=== PATIENT | female | born 1935 | race Hispanic/Latino ===

== ENCOUNTER 2018-10-26 11:27 | Outpatient (CLI) | payer MEDICARE ==
--- NOTE | 2018-10-26 13:30 | XRay Report ---
XRAY RIGHT HUMERUS TWO VIEWS: 10/26/18 11:38:00 CLINICAL: Right arm pain. FINDINGS: No fracture or dislocation. Normal alignment at the shoulder and elbow. Mild bony humeral joint osteoarthritis with a small inferior humeral osteophyte. Moderate acromioclavicular joint arthritis. Normal soft tissues. IMPRESSION: Shoulder arthritis and otherwise negative.
--- NOTE | 2018-10-26 13:52 | Cat Scan Report ---
PROCEDURE: CT HEAD/BRAIN WO CON TECHNIQUE: A noncontrast CT of the head was performed. 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 There is no acute intracranial hemorrhage. There is no brain edema, mass effect or midline shift. Ventricular size is appropriate for brain volume. There is no abnormal extra-axial fluid collections. There is no skull fracture seen. The visualized paranasal sinuses are clear. IMPRESSION: There is no acute intracranial abnormality seen. This document is electronically signed by Judith Almeida MD., October 26 2018 01:50:22 PM ET
== END 2018-10-26 11:28 | disposition home or self-care (01) ==
LOC: CT 11:27
PROVIDERS: ATTEND Internal Medicine
DX: S09.90XA Unspecified injury of head, initial encounter (principal); M19.011 Primary osteoarthritis, right shoulder; I10 Essential (primary) hypertension; Z90.710 Acquired absence of both cervix and uterus; X58.XXXA Exposure to other specified factors, initial encounter; Y93.89 Activity, other specified; Y92.89 Other specified places as the place of occurrence of the external cause; Y99.8 Other external cause status
CPT/HCPCS: 70450